=== PATIENT | female | born 1945 | race Caucasian/White ===

== ENCOUNTER 2016-12-02 20:37 | Inpatient (IN) | payer MEDICARE, OTHER ==
[2016-12-02 21:06] VITALS: BP 156/83
[2016-12-02] MEDS ORDERED: Maalox 30 mL Cup PO PRN (21:41)
[2016-12-02] MEDS ORDERED: Magnesium Hydroxide (MOM) 30 mL UDC PO PRN (21:41)
[2016-12-03] MEDS ORDERED: Non-Formulary Item 1 EA (Trazodone Hcl [Trazodone Hcl] 100 MG) PO PRN (08:59)
[2016-12-03] MEDS ORDERED: Pantoprazole 40 mg EC Tab PO SCH (09:00)
[2016-12-03] MEDS ORDERED: BUSPIRONE HCL 15 MG PO SCH (09:00)
[2016-12-03] MEDS: Pantoprazole 40 mg EC Tab PO SCH (09:57)
[2016-12-04 07:34] LABS: % BASOPHILS 0.8 % (0.0-2.0); % EOSINOPHILS 3.3 % (0.0-5.0); % LYMPHOCYTES 18.9 % (20.0-50.0); % MONOCYTES 8.2 % (2.0-10.0); % NEUTROPHILS 68.8 % (40.0-80.0); HEMATOCRIT 30.9 % (35.0-45.0); HEMOGLOBIN 10.4 gm/dL (11.7-16.1); MEAN CELL VOLUME 77.7 fl (81-100); MEAN CORPUSCULAR HEMOGLOBIN 26.1 pg (27.0-31.0); MEAN CORPUSCULAR HGB CONC 33.5 pg (28.0-36.0); MEAN PLATELET VOLUME 8.3 fl; NEUTROPHILE ABSOLUTE 4.6 Th/cmm (1.8-8.0); PLATELET COUNT 275 Th/cmm (150-400); RED BLOOD COUNT 3.97 Mil/cmm (3.80-5.20); RED CELL DISTRIBUTION WIDTH 17.9 % (11.5-20.0); WHITE BLOOD COUNT 6.8 Th/cmm (4.8-10.8)
[2016-12-04 08:20] LABS: ALB/GLOB RATIO 1.5 (1.0-1.8); ALKALINE PHOSPHATASE 107 U/L (34-104); ANION GAP 5.4 (7.0-16.0); BILIRUBIN,TOTAL 0.2 mg/dL (0.3-1.0); BUN - UREA NITROGEN 16 mg/dL (7-25); CALCIUM SERUM 9.8 mg/dL (8.6-10.3); CARBON DIOXIDE 24.4 mEq/L (21.0-31.0); CHLORIDE 103 mEq/L (98-107); CHOLESTEROL 146 mg/dL (<200); CREATININE - SERUM 0.5 mg/dL (0.6-1.2); GLUCOSE 117 mg/dL (70-105); POTASSIUM SERUM 3.8 mEq/L (3.5-5.1); SGOT 15 U/L (13-39); SGPT/ALT 16 U/L (7-52); SODIUM SERUM 129 mEq/L (136-145); TRIGLYCERIDES 121 mg/dL (<150)
[2016-12-04] MEDS: Pantoprazole 40 mg EC Tab PO SCH (09:07)
[2016-12-04] MEDS: Ferrous Sulfate 325 MG TAB PO SCH (09:13)
[2016-12-04] MEDS ORDERED: Diphenoxylate/Atropine 2.5mg Tab PO PRN (10:12)
[2016-12-05] MEDS: Ferrous Sulfate 325 MG TAB PO SCH (09:42)
[2016-12-05] MEDS: Pantoprazole 40 mg EC Tab PO SCH (09:46)
[2016-12-06 08:11] LABS: ANION GAP 6.5 (7.0-16.0); BUN - UREA NITROGEN 11 mg/dL (7-25); BUN/CREATININE RATIO 27.5; CALCIUM SERUM 9.3 mg/dL (8.6-10.3); CARBON DIOXIDE 25.4 mEq/L (21.0-31.0); CHLORIDE 107 mEq/L (98-107); CREATININE - SERUM 0.4 mg/dL (0.6-1.2); GLUCOSE 97 mg/dL (70-105); POTASSIUM SERUM 3.9 mEq/L (3.5-5.1); SODIUM SERUM 135 mEq/L (136-145)
[2016-12-06] MEDS: Pantoprazole 40 mg EC Tab PO SCH (09:06)
[2016-12-06] MEDS: Ferrous Sulfate 325 MG TAB PO SCH (09:07)
[2016-12-07] MEDS: Pantoprazole 40 mg EC Tab PO SCH (09:51)
[2016-12-07] MEDS: Ferrous Sulfate 325 MG TAB PO SCH (09:52)
[2016-12-08] MEDS: Pantoprazole 40 mg EC Tab PO SCH (08:39)
[2016-12-08] MEDS: Ferrous Sulfate 325 MG TAB PO SCH (08:39)
[2016-12-09] MEDS: Pantoprazole 40 mg EC Tab PO SCH (08:26)
[2016-12-09] MEDS: Ferrous Sulfate 325 MG TAB PO SCH (08:28)
[2016-12-10] MEDS: Ferrous Sulfate 325 MG TAB PO SCH (08:18)
[2016-12-10] MEDS: Pantoprazole 40 mg EC Tab PO SCH (08:19)
[2016-12-11] MEDS: Pantoprazole 40 mg EC Tab PO SCH (08:15)
[2016-12-11] MEDS: Ferrous Sulfate 325 MG TAB PO SCH (08:16)
[2016-12-12] MEDS: Ferrous Sulfate 325 MG TAB PO SCH (08:08)
[2016-12-12] MEDS: Pantoprazole 40 mg EC Tab PO SCH (08:08)
[2016-12-13] MEDS: Ferrous Sulfate 325 MG TAB PO SCH (08:40)
[2016-12-13] MEDS: Pantoprazole 40 mg EC Tab PO SCH (08:40)
[2016-12-14] MEDS: Ferrous Sulfate 325 MG TAB PO SCH (08:25)
[2016-12-14] MEDS: Pantoprazole 40 mg EC Tab PO SCH (08:25)
[2016-12-15] MEDS: Ferrous Sulfate 325 MG TAB PO SCH (08:45)
[2016-12-15] MEDS: Pantoprazole 40 mg EC Tab PO SCH (08:45)
== END 2016-12-15 14:40 | disposition home or self-care (01) | DRG 885 ==
LOC: GERO 20:37
PROVIDERS: ADMIT Psychiatry & Neurology Psychiatry; ATTEND Psychiatry & Neurology Psychiatry
DX: F29 Unspecified psychosis not due to a substance or known physiological condition (principal); F03.90 Unspecified dementia, unspecified severity, without behavioral disturbance, psychotic disturbance, mood disturbance, and anxiety; R45.851 Suicidal ideations; D64.9 Anemia, unspecified; I10 Essential (primary) hypertension; K21.9 Gastro-esophageal reflux disease without esophagitis; F41.9 Anxiety disorder, unspecified; F31.9 Bipolar disorder, unspecified; M19.90 Unspecified osteoarthritis, unspecified site
CPT/HCPCS: 36415-UA; 80048-TC; 80053-TC; 80061-TC; 84443-TC; 85025-TC; 90899; G0410; Z7610